=== PATIENT | female | born 1965 ===

== ENCOUNTER 2021-03-27 14:29 | Inpatient (IN) ==
[2021-03-27] MEDS ORDERED: ACETAMINOPHEN 325 MG TABLET PO PRN (17:57)
[2021-03-27] MEDS ORDERED: GLUCAGON 1 MG VIAL IM PRN (17:57)
[2021-03-27] MEDS ORDERED: hydrALAZINE 20 MG/1 ML VIAL IV PRN (17:57)
[2021-03-27] MEDS ORDERED: ONDANSETRON 4 MG/2 ML VIAL IV PRN (17:57)
[2021-03-27] MEDS ORDERED: DEXTROSE 50% 25 GM/50 ML SYRINGE IV PRN (18:05)
[2021-03-27] MEDS: HEPARIN 5,000 UNIT/1 ML VIAL SUBCUT SCH (18:47)
[2021-03-27] MEDS: FUROSEMIDE 40 MG/4 ML VIAL IV SCH (18:47)
[2021-03-27 18:50] LABS: Risk Ratio 2.3; Thyroid Stimulating Hormone 1.63 uIU/ml (0.358-3.74); VLDL Cholesterol 12.8 MG/DL
[2021-03-27] MEDS: AZITHROMYCIN INJ 500 MG in SODIUM CHLORIDE 0.9% 250 ML IV SCH (18:50)
[2021-03-27] MEDS ORDERED: MAGNESIUM SULF RIDER 4 GM/100 ML PREMIX IV PRN (19:18)
[2021-03-27] MEDS ORDERED: MAGNESIUM SULF RIDER 2 GM/50 ML PREMIX IV PRN (19:18)
[2021-03-27] MEDS: INSULIN LISPRO 100 UNIT/ML SUBCUT SCH (20:58)
[2021-03-27] MEDS: carvediloL 6.25 MG TABLET PO SCH (20:59)
[2021-03-27] MEDS ORDERED: ENOXAPARIN 80 MG/0.8 ML SYRINGE SUBCUT ONE (22:00)
[2021-03-28 05:31] LABS: Basophils % 0.2 % (0.0-0.8); Eosinophils % 0.1 % (0.00-10.9); Hematocrit 31.5 VOL% (35.7-47.0); Hemoglobin 10.3 GM/DL (12.0-16.0); Immature Granulocytes % 0.4 %; Immature Granulocytes Absolute 0.07 #; Lymphocytes # 0.4 10*3/uL (1.4-4.0); Lymphocytes % 2.5 % (21.3-54.2); Mean Corpuscular HGB Conc 32.7 GM/DL (32-36); Mean Corpuscular Volume 91.8 FL (87-102); Mean Platelet Volume 11.1 FL (9.6-12.0); Monocytes % 2.9 % (1.7-12.7); Neutrophils % 93.9 % (38.7-73.9); Platelet Count 159 T/CUMM (130-400); Red Blood Count 3.43 MC/CUMM (3.8-5.5); Red Cell Distribution Width 14.9 % (9.3-17.3); White Blood Count 17.8 T/CUMM (4-12)
[2021-03-28 05:47] LABS: Albumin 1.9 G/DL (3.4-5.0); Bilirubin,Total 0.8 MG/DL (0.20-1.00); Calcium 7.2 MG/DL (8.5-10.1); Osmolality,Calculated 298.8 MOS/KG (273-304); Potassium 4.5 MMOL/L (3.5-5.1); Total Protein 5.6 G/DL (6.4-8.2)
[2021-03-28 05:59] LABS: Acanthocytes Few; Band Neutrophils 3 % (0-10); Lymphocytes 1 % (20-55); Segmented Neutrophils 95 % (50-85); Total Cells Counted 100
[2021-03-28 06:00] LABS: Burr Cells Few; Elliptocytes Few; Platelet Estimate Adequate
[2021-03-28] MEDS: PANTOPRAZOLE 40 MG TABLET PO SCH (08:44)
[2021-03-28] MEDS: carvediloL 6.25 MG TABLET PO SCH ×2 (08:44→21:09)
[2021-03-28] MEDS: ISOSORBIDE MONONITRATE 30 MG TABLET PO SCH (08:44)
[2021-03-28] MEDS: cefTRIAXone 2,000 MG in SODIUM CHLORIDE 0.9% 100 ML IV SCH (08:44)
[2021-03-28] MEDS: FUROSEMIDE 40 MG/4 ML VIAL IV SCH (08:44)
[2021-03-28] MEDS: INSULIN LISPRO 100 UNIT/ML SUBCUT SCH ×4 (09:42→21:28)
[2021-03-28] MEDS: metOLazone 5 MG TABLET PO SCH (12:06)
[2021-03-28] MEDS: FUROSEMIDE 100 MG/10 ML VIAL IV SCH (15:28)
[2021-03-28] MEDS: AZITHROMYCIN INJ 500 MG in SODIUM CHLORIDE 0.9% 250 ML IV SCH (17:31)
[2021-03-29 05:30] LABS: Basophils % 0.2 % (0.0-0.8); Eosinophils % 0.1 % (0.00-10.9); Hematocrit 29.7 VOL% (35.7-47.0); Hemoglobin 9.3 GM/DL (12.0-16.0); Immature Granulocytes % 0.5 %; Immature Granulocytes Absolute 0.07 #; Lymphocytes # 0.5 10*3/uL (1.4-4.0); Lymphocytes % 3.9 % (21.3-54.2); Mean Corpuscular HGB Conc 31.3 GM/DL (32-36); Mean Corpuscular Volume 92.2 FL (87-102); Mean Platelet Volume 11.3 FL (9.6-12.0); Monocytes % 3.6 % (1.7-12.7); Neutrophils % 91.7 % (38.7-73.9); Platelet Count 161 T/CUMM (130-400); Red Blood Count 3.22 MC/CUMM (3.8-5.5); Red Cell Distribution Width 15.1 % (9.3-17.3)
[2021-03-29 06:04] LABS: Anisocytosis 2+; Band Neutrophils 15 % (0-10); Lymphocytes 3 % (20-55); Platelet Estimate Normal; Segmented Neutrophils 81 % (50-85); Total Cells Counted 100
[2021-03-29 06:05] LABS: Burr Cells 1+; Macrocytosis 1+; Ovalocytes 1+; Poikilocytosis 1+
[2021-03-29] MEDS: HEPARIN 5,000 UNIT/1 ML VIAL SUBCUT SCH ×2 (06:05→17:58)
[2021-03-29 08:37] LABS: Calcium 7.4 MG/DL (8.5-10.1); Osmolality,Calculated 302.5 MOS/KG (273-304); Potassium 4.5 MMOL/L (3.5-5.1)
[2021-03-29] MEDS: INSULIN LISPRO 100 UNIT/ML SUBCUT SCH ×4 (09:13→21:07)
[2021-03-29] MEDS: cefTRIAXone 2,000 MG in SODIUM CHLORIDE 0.9% 100 ML IV SCH (10:30)
[2021-03-29] MEDS: carvediloL 6.25 MG TABLET PO SCH ×2 (10:30→21:07)
[2021-03-29] MEDS: PANTOPRAZOLE 40 MG TABLET PO SCH (10:30)
[2021-03-29] MEDS: ISOSORBIDE MONONITRATE 30 MG TABLET PO SCH (10:31)
[2021-03-29] MEDS: metOLazone 5 MG TABLET PO SCH (10:31)
[2021-03-29] MEDS: FUROSEMIDE 100 MG/10 ML VIAL IV SCH ×2 (13:52→17:57)
[2021-03-29] MEDS: AZITHROMYCIN INJ 500 MG in SODIUM CHLORIDE 0.9% 250 ML IV SCH (17:52)
[2021-03-30 04:50] LABS: Eosinophils % 0.1 % (0.00-10.9); Hematocrit 29.5 VOL% (35.7-47.0); Hemoglobin 9.3 GM/DL (12.0-16.0); Immature Granulocytes % 0.4 %; Immature Granulocytes Absolute 0.05 #; Lymphocytes # 0.4 10*3/uL (1.4-4.0); Lymphocytes % 3.1 % (21.3-54.2); Mean Corpuscular HGB Conc 31.5 GM/DL (32-36); Mean Corpuscular Volume 93.1 FL (87-102); Mean Platelet Volume 11.4 FL (9.6-12.0); Monocytes % 3.4 % (1.7-12.7); Platelet Count 157 T/CUMM (130-400); Red Blood Count 3.17 MC/CUMM (3.8-5.5); White Blood Count 11.2 T/CUMM (4-12)
[2021-03-30 04:58] LABS: Calcium 6.8 MG/DL (8.5-10.1); Osmolality,Calculated 301.1 MOS/KG (273-304); Potassium 4.6 MMOL/L (3.5-5.1)
[2021-03-30 05:16] LABS: Acanthocytes Few; Burr Cells Slight; Hypochromasia 1+; Lymphocytes 7 % (20-55); Microcytosis 1+; Ovalocytes Few; Segmented Neutrophils 89 % (50-85); Total Cells Counted 100
[2021-03-30 05:17] LABS: Platelet Estimate Adequate
[2021-03-30] MEDS: HEPARIN 5,000 UNIT/1 ML VIAL SUBCUT SCH ×2 (06:14→17:09)
[2021-03-30] MEDS: ISOSORBIDE MONONITRATE 30 MG TABLET PO SCH (08:36)
[2021-03-30] MEDS: metOLazone 5 MG TABLET PO SCH (08:36)
[2021-03-30] MEDS: carvediloL 6.25 MG TABLET PO SCH ×2 (08:36→20:39)
[2021-03-30] MEDS: PANTOPRAZOLE 40 MG TABLET PO SCH (08:36)
[2021-03-30] MEDS: FUROSEMIDE 100 MG/10 ML VIAL IV SCH ×2 (08:51→16:22)
[2021-03-30] MEDS: cefTRIAXone 2,000 MG in SODIUM CHLORIDE 0.9% 100 ML IV SCH (08:51)
[2021-03-30] MEDS: INSULIN LISPRO 100 UNIT/ML SUBCUT SCH ×4 (08:55→20:39)
[2021-03-30] MEDS: AZITHROMYCIN INJ 500 MG in SODIUM CHLORIDE 0.9% 250 ML IV SCH (17:30)
[2021-03-30] MEDS ORDERED: metOLazone 5 MG TABLET PO ONE (21:07)
[2021-03-31] MEDS: HEPARIN 5,000 UNIT/1 ML VIAL SUBCUT SCH (05:50)
[2021-03-31 06:14] LABS: Osmolality,Calculated 296.4 MOS/KG (273-304); Potassium 4.6 MMOL/L (3.5-5.1)
[2021-03-31] MEDS: INSULIN LISPRO 100 UNIT/ML SUBCUT SCH ×2 (07:44→12:49)
[2021-03-31] MEDS: PANTOPRAZOLE 40 MG TABLET PO SCH (08:42)
[2021-03-31] MEDS: FUROSEMIDE 100 MG/10 ML VIAL IV SCH (08:42)
[2021-03-31] MEDS: ISOSORBIDE MONONITRATE 30 MG TABLET PO SCH (08:42)
[2021-03-31] MEDS: carvediloL 6.25 MG TABLET PO SCH (08:42)
[2021-03-31] MEDS: SODIUM BICARBONATE 650 MG TABLET PO SCH ×2 (08:48→14:35)
[2021-03-31] MEDS ORDERED: metOLazone 5 MG TABLET PO SCH (09:00)
[2021-03-31 11:56] LABS: M. Tuberculosis PCR Result Negative (Negative); M. Tuberculosis PCR Source SPUTUM
[2021-03-31 12:36] VITALS: BP 148/79
== END 2021-03-31 17:32 | disposition home or self-care (01) | DRG 698 ==
LOC: N.TELEN → SUATTDRO 16:48
PROVIDERS: ADMIT Internal Medicine; ATTEND Emergency Medicine

== ENCOUNTER 2021-04-02 18:44 | Inpatient (IN) ==
[2021-04-02 22:29] LABS: Basophils % 0.2 % (0.0-0.8); Eosinophils % 0.5 % (0.00-10.9); Hemoglobin 10.7 GM/DL (12.0-16.0); Immature Granulocytes Absolute 0.06 #; Lymphocytes # 0.4 10*3/uL (1.4-4.0); Lymphocytes % 6.4 % (21.3-54.2); Mean Corpuscular HGB Conc 31.5 GM/DL (32-36); Mean Corpuscular Volume 90.2 FL (87-102); Mean Platelet Volume 10.9 FL (9.6-12.0); Monocytes % 4.2 % (1.7-12.7); Neutrophils % 87.7 % (38.7-73.9); Platelet Count 178 T/CUMM (130-400); Red Blood Count 3.77 MC/CUMM (3.8-5.5); Red Cell Distribution Width 14.7 % (9.3-17.3); White Blood Count 6.1 T/CUMM (4-12)
[2021-04-02] MEDS ORDERED: DEXTROSE 50% 25 GM/50 ML SYRINGE IV PRN (22:38)
[2021-04-02] MEDS ORDERED: ACETAMINOPHEN 325 MG TABLET PO PRN (22:38)
[2021-04-02] MEDS ORDERED: hydrALAZINE 20 MG/1 ML VIAL IV PRN (22:38)
[2021-04-02] MEDS ORDERED: GLUCAGON 1 MG VIAL IM PRN (22:38)
[2021-04-02] MEDS ORDERED: ONDANSETRON 4 MG/2 ML VIAL IV PRN (22:38)
[2021-04-02 22:42] LABS: PT Patient Result 11.3 SECS (10.5-12.0)
[2021-04-02 22:46] LABS: Alanine Aminotransferase 18 U/L (13-56); Albumin 2.2 G/DL (3.4-5.0); Alkaline Phosphatase 91 U/L (45-117); Aspartate Amino Transferase 12 U/L (0-37); Bilirubin,Total < 0.39 MG/DL (0.20-1.00); Blood Urea Nitrogen 104 MG/DL (7-18); Calcium 7.3 MG/DL (8.5-10.1); Carbon Dioxide 15 MMOL/L (21-32); Glucose 99 MG/DL (74-106); Potassium 4.4 MMOL/L (3.5-5.1); Sodium 136 MMOL/L (136-145); Total Protein 6.5 G/DL (6.4-8.2)
[2021-04-02 22:48] LABS: Estimated Glom Filtration Rate 0 ML/MIN
[2021-04-03] MEDS: ALBUTEROL/IPRATROPIUM 3 ML NEB RESP TX SCH ×4 (00:06→21:57)
[2021-04-03 05:48] LABS: Basophils % 0.2 % (0.0-0.8); Eosinophils % 0.8 % (0.00-10.9); Hematocrit 30.9 VOL% (35.7-47.0); Hemoglobin 9.8 GM/DL (12.0-16.0); Immature Granulocytes % 0.8 %; Immature Granulocytes Absolute 0.04 #; Lymphocytes # 0.4 10*3/uL (1.4-4.0); Lymphocytes % 8.2 % (21.3-54.2); Mean Corpuscular HGB Conc 31.7 GM/DL (32-36); Mean Corpuscular Volume 90.9 FL (87-102); Mean Platelet Volume 10.9 FL (9.6-12.0); Monocytes % 6.2 % (1.7-12.7); Neutrophils % 83.8 % (38.7-73.9); Platelet Count 170 T/CUMM (130-400); Red Cell Distribution Width 14.8 % (9.3-17.3)
[2021-04-03 06:07] LABS: Bilirubin,Total 0.4 MG/DL (0.20-1.00); Calcium 7.4 MG/DL (8.5-10.1); Osmolality,Calculated 302.1 MOS/KG (273-304); Potassium 4.1 MMOL/L (3.5-5.1); Total Protein 5.8 G/DL (6.4-8.2)
[2021-04-03] MEDS ORDERED: FUROSEMIDE INJ 160 MG in SODIUM CHLORIDE 0.9% 50 ML IV SCH (09:00)
[2021-04-03] MEDS: SODIUM BICARBONATE 650 MG TABLET PO SCH ×3 (09:11→21:23)
[2021-04-03] MEDS: ISOSORBIDE MONONITRATE 30 MG TABLET PO SCH (09:11)
[2021-04-03] MEDS: carvediloL 6.25 MG TABLET PO SCH ×2 (09:11→21:22)
[2021-04-03] MEDS: metOLazone 5 MG TABLET PO SCH (09:11)
[2021-04-03] MEDS: PANTOPRAZOLE 40 MG TABLET PO SCH (09:11)
[2021-04-03] MEDS: FUROSEMIDE 100 MG/10 ML VIAL IV SCH ×2 (09:12→21:23)
[2021-04-03] MEDS: INSULIN LISPRO 100 UNIT/ML SUBCUT SCH ×4 (09:12→21:23)
[2021-04-03] MEDS: HEPARIN 5,000 UNIT/1 ML VIAL SUBCUT SCH ×2 (09:13→21:22)
[2021-04-04] MEDS: ALBUTEROL/IPRATROPIUM 3 ML NEB RESP TX SCH ×3 (01:15→13:34)
[2021-04-04 05:45] LABS: Basophils % 0.2 % (0.0-0.8); Eosinophils # 0.1 10*3/uL (0.0-0.87); Eosinophils % 1.5 % (0.00-10.9); Hematocrit 30.1 VOL% (35.7-47.0); Hemoglobin 9.6 GM/DL (12.0-16.0); Immature Granulocytes % 0.5 %; Immature Granulocytes Absolute 0.03 #; Lymphocytes # 0.4 10*3/uL (1.4-4.0); Lymphocytes % 7.6 % (21.3-54.2); Mean Corpuscular HGB Conc 31.9 GM/DL (32-36); Mean Corpuscular Volume 89.6 FL (87-102); Mean Platelet Volume 10.7 FL (9.6-12.0); Monocytes % 7.3 % (1.7-12.7); Neutrophils % 82.9 % (38.7-73.9); Platelet Count 176 T/CUMM (130-400); Red Blood Count 3.36 MC/CUMM (3.8-5.5); Red Cell Distribution Width 14.6 % (9.3-17.3); White Blood Count 5.5 T/CUMM (4-12)
[2021-04-04 06:04] LABS: Calcium 7.3 MG/DL (8.5-10.1); Osmolality,Calculated 293.5 MOS/KG (273-304); Potassium 4.3 MMOL/L (3.5-5.1)
[2021-04-04] MEDS: INSULIN LISPRO 100 UNIT/ML SUBCUT SCH ×3 (09:39→16:41)
[2021-04-04] MEDS: metOLazone 5 MG TABLET PO SCH (09:52)
[2021-04-04] MEDS: FUROSEMIDE 100 MG/10 ML VIAL IV SCH (09:52)
[2021-04-04] MEDS: SODIUM BICARBONATE 650 MG TABLET PO SCH ×2 (09:52→14:10)
[2021-04-04] MEDS: HEPARIN 5,000 UNIT/1 ML VIAL SUBCUT SCH (09:52)
[2021-04-04] MEDS: carvediloL 6.25 MG TABLET PO SCH (09:53)
[2021-04-04] MEDS: ISOSORBIDE MONONITRATE 30 MG TABLET PO SCH (09:53)
[2021-04-04] MEDS: PANTOPRAZOLE 40 MG TABLET PO SCH (09:53)
[2021-04-04 20:23] VITALS: BP 149/73
== END 2021-04-04 16:31 | disposition home or self-care (01) | DRG 304 ==
LOC: N.3E → OBSVTOIN 21:04 → SUATTDRO 21:04
PROVIDERS: ADMIT Internal Medicine; ATTEND Internal Medicine

== ENCOUNTER 2021-07-02 08:40 | Inpatient (IN) ==
[2021-07-02 09:24] LABS: Basophils % 0.2 % (0.0-0.8); Eosinophils # 0.1 10*3/uL (0.0-0.87); Eosinophils % 0.9 % (0.00-10.9); Hematocrit 40.9 VOL% (35.7-47.0); Hemoglobin 12.3 GM/DL (12.0-16.0); Immature Granulocytes % 0.9 %; Immature Granulocytes Absolute 0.09 #; Lymphocytes # 0.8 10*3/uL (1.4-4.0); Lymphocytes % 8.2 % (21.3-54.2); Mean Corpuscular HGB Conc 30.1 GM/DL (32-36); Mean Corpuscular Volume 97.1 FL (87-102); Mean Platelet Volume 10.3 FL (9.6-12.0); Monocytes % 4.9 % (1.7-12.7); Neutrophils % 84.9 % (38.7-73.9); Red Blood Count 4.21 MC/CUMM (3.8-5.5); Red Cell Distribution Width 17.4 % (9.3-17.3); White Blood Count 9.6 T/CUMM (4-12)
[2021-07-02 09:27] LABS: Platelet Count 98 T/CUMM (130-400)
[2021-07-02 09:41] LABS: Calcium 8.6 MG/DL (8.5-10.1); Osmolality,Calculated 282.2 MOS/KG (273-304); Potassium 4.3 MMOL/L (3.5-5.1)
[2021-07-02] MEDS ORDERED: KETOROLAC 30 MG/1 ML VIAL IV PRN (12:27)
[2021-07-02] MEDS ORDERED: ONDANSETRON 4 MG/2 ML VIAL IV PRN (12:27)
[2021-07-02] MEDS ORDERED: hydrALAZINE 20 MG/1 ML VIAL IV PRN (12:27)
[2021-07-02] MEDS ORDERED: GLUCAGON 1 MG VIAL IM PRN (12:27)
[2021-07-02] MEDS ORDERED: DEXTROSE 10% 25 GM/250 ML BAG IV PRN (12:27)
[2021-07-02 13:10] LABS: Thyroid Stimulating Hormone 3.89 uIU/ml (0.358-3.74)
[2021-07-02] MEDS: HEPARIN DRIP 25,000 UNITS/500 ML PREMIX IV SCH (13:56)
[2021-07-02] MEDS ORDERED: HEPARIN 10,000 UNIT/10 ML VIAL IV SCH (17:30)
[2021-07-02] MEDS: INSULIN LISPRO 100 UNIT/ML SUBCUT SCH ×2 (18:25→21:22)
[2021-07-03 03:16] LABS: Basophils % 0.4 % (0.0-0.8); Eosinophils # 0.1 10*3/uL (0.0-0.87); Eosinophils % 0.7 % (0.00-10.9); Hematocrit 38.4 VOL% (35.7-47.0); Hemoglobin 11.7 GM/DL (12.0-16.0); Immature Granulocytes % 0.6 %; Immature Granulocytes Absolute 0.05 #; Lymphocytes # 1.4 10*3/uL (1.4-4.0); Lymphocytes % 17.1 % (21.3-54.2); Mean Corpuscular HGB Conc 30.5 GM/DL (32-36); Mean Corpuscular Volume 96.7 FL (87-102); Mean Platelet Volume 10.2 FL (9.6-12.0); Monocytes % 6.4 % (1.7-12.7); Neutrophils % 74.8 % (38.7-73.9); Red Blood Count 3.97 MC/CUMM (3.8-5.5); Red Cell Distribution Width 17.1 % (9.3-17.3); White Blood Count 8.3 T/CUMM (4-12)
[2021-07-03 03:22] LABS: Platelet Count 40 T/CUMM (130-400)
[2021-07-03 03:29] LABS: Calcium 8.3 MG/DL (8.5-10.1); Osmolality,Calculated 275.2 MOS/KG (273-304); Potassium 4.5 MMOL/L (3.5-5.1)
[2021-07-03 03:32] LABS: Risk Ratio 2.58; VLDL Cholesterol 15.2 MG/DL
[2021-07-03] MEDS: INSULIN LISPRO 100 UNIT/ML SUBCUT SCH ×4 (09:00→20:41)
[2021-07-03] MEDS: HEPARIN DRIP 25,000 UNITS/500 ML PREMIX IV SCH (13:00)
[2021-07-03] MEDS ORDERED: VANCOMYCIN INJ 500 MG in SODIUM CHLORIDE 0.9% 100 ML IV PRN (15:05)
[2021-07-03] MEDS ORDERED: VANCOMYCIN INJ 1,500 MG in SODIUM CHLORIDE 0.9% 500 ML IV ONE (17:00)
[2021-07-03] MEDS: ACETAMINOPHEN 325 MG TABLET PO PRN (20:47)
[2021-07-04] MEDS: INSULIN LISPRO 100 UNIT/ML SUBCUT SCH ×4 (09:21→21:43)
[2021-07-04] MEDS: HEPARIN DRIP 25,000 UNITS/500 ML PREMIX IV SCH (13:30)
[2021-07-04 15:47] LABS: INR 0.9; PT Patient Result 10.5 SECS (10.5-12.0)
[2021-07-05] MEDS: HEPARIN DRIP 25,000 UNITS/500 ML PREMIX IV SCH (06:14)
[2021-07-05] MEDS: ACETAMINOPHEN 325 MG TABLET PO PRN (06:17)
[2021-07-05] MEDS: INSULIN LISPRO 100 UNIT/ML SUBCUT SCH ×2 (08:36→13:32)
[2021-07-05] MEDS ORDERED: WARFARIN 5 MG TABLET PO SCH (15:00)
[2021-07-05] MEDS ORDERED: VANCOMYCIN INJ 500 MG in SODIUM CHLORIDE 0.9% 100 ML IV ONE (17:00)
[2021-07-05 17:23] VITALS: BP 152/87
== END 2021-07-05 17:48 | disposition home or self-care (01) | DRG 314 ==
LOC: N.ED 08:40 → N.5E 13:30 → SUATTDRO 13:30 → N.5E 14:13
PROVIDERS: ADMIT Emergency Medicine; ATTEND Internal Medicine Geriatric Medicine

== ENCOUNTER 2021-07-20 07:45 | Inpatient (IN) ==
[2021-07-25] MEDS ORDERED: DEXTROSE 10% 250 ML BAG IV PRN (11:10)
[2021-07-25] MEDS ORDERED: GLUCAGON 1 MG VIAL IM PRN (11:10)
[2021-07-25 11:32] LABS: Basophils # 0.1 10*3/uL (0.0-0.2); Basophils % 0.7 % (0.0-0.8); Eosinophils # 0.1 10*3/uL (0.0-0.87); Eosinophils % 1.4 % (0.00-10.9); Hematocrit 34.2 VOL% (35.7-47.0); Hemoglobin 10.3 GM/DL (12.0-16.0); Immature Granulocytes % 0.7 %; Immature Granulocytes Absolute 0.07 #; Lymphocytes # 0.9 10*3/uL (1.4-4.0); Lymphocytes % 8.9 % (21.3-54.2); Mean Corpuscular HGB Conc 30.1 GM/DL (32-36); Mean Corpuscular Volume 90.2 FL (87-102); Mean Platelet Volume 9.8 FL (9.6-12.0); Monocytes % 8.9 % (1.7-12.7); Neutrophils % 79.4 % (38.7-73.9); Platelet Count 218 T/CUMM (130-400); Red Blood Count 3.79 MC/CUMM (3.8-5.5); Red Cell Distribution Width 16.2 % (9.3-17.3); White Blood Count 10.1 T/CUMM (4-12)
[2021-07-25 11:52] LABS: Alanine Aminotransferase < 9 U/L (13-56); Albumin 2.3 G/DL (3.4-5.0); Alkaline Phosphatase 136 U/L (45-117); Aspartate Amino Transferase 12 U/L (0-37); Blood Urea Nitrogen 30 MG/DL (7-18); Calcium 8.4 MG/DL (8.5-10.1); Carbon Dioxide 26 MMOL/L (21-32); Estimated Glom Filtration Rate 11 ML/MIN; Glucose 127 MG/DL (74-106); Osmolality,Calculated 267.8 MOS/KG (273-304); Potassium 4.4 MMOL/L (3.5-5.1); Sodium 130 MMOL/L (136-145); Total Protein 7.6 G/DL (6.4-8.2)
[2021-07-25 12:05] LABS: Arterial Base Excess iSTAT -1 MMOL/L (-2.5-2.5); Arterial Bicarbonate iSTAT 23.2 MMOL/L (20-26); Arterial O2 Saturation iSTAT 94 % (95-100); Arterial PCO2 iSTAT 38 MM HG (35-48); Arterial PO2 iSTAT 73 MM HG (80-95); Arterial Total CO2 iSTAT 24 MMO/L (23-27); Arterial pH iSTAT 7.395 (7.35-7.45)
[2021-07-25] MEDS ORDERED: ONDANSETRON 4 MG/2 ML VIAL IV PRN (12:14)
[2021-07-25] MEDS: INSULIN REGULAR 100 UNIT/ML SUBCUT SCH ×4 (12:18→22:19)
[2021-07-25] MEDS: SEVELAMER CARBONATE 800 MG TABLET PO SCH ×2 (15:23→17:33)
[2021-07-25] MEDS: carvediloL 6.25 MG TABLET PO SCH (17:33)
[2021-07-25] MEDS: ACETAMINOPHEN 325 MG TABLET PO PRN (20:23)
[2021-07-25] MEDS: CHLORHEXIDINE 0.12% ORAL RINSE 60 ML BOTTLE SWISH/SPIT SCH (20:25)
[2021-07-25] MEDS ORDERED: carvediloL 6.25 MG TABLET PO SCH (21:00)
[2021-07-26 03:23] LABS: Basophils % 0.5 % (0.0-0.8); Eosinophils # 0.2 10*3/uL (0.0-0.87); Eosinophils % 2.2 % (0.00-10.9); Hematocrit 32.6 VOL% (35.7-47.0); Immature Granulocytes % 0.7 %; Immature Granulocytes Absolute 0.06 #; Lymphocytes # 1.2 10*3/uL (1.4-4.0); Lymphocytes % 13.7 % (21.3-54.2); Mean Corpuscular HGB Conc 30.7 GM/DL (32-36); Mean Corpuscular Volume 89.1 FL (87-102); Monocytes % 10.3 % (1.7-12.7); Neutrophils % 72.6 % (38.7-73.9); Platelet Count 262 T/CUMM (130-400); Red Blood Count 3.66 MC/CUMM (3.8-5.5); Red Cell Distribution Width 16.5 % (9.3-17.3); White Blood Count 8.6 T/CUMM (4-12)
[2021-07-26 03:42] LABS: Alanine Aminotransferase 13 U/L (13-56); Albumin 2.1 G/DL (3.4-5.0); Alkaline Phosphatase 144 U/L (45-117); Aspartate Amino Transferase 14 U/L (0-37); Blood Urea Nitrogen 37 MG/DL (7-18); Calcium 7.8 MG/DL (8.5-10.1); Carbon Dioxide 22 MMOL/L (21-32); Estimated Glom Filtration Rate 8 ML/MIN; Glucose 116 MG/DL (74-106); Osmolality,Calculated 271.7 MOS/KG (273-304); Potassium 4.4 MMOL/L (3.5-5.1); Sodium 131 MMOL/L (136-145); Total Protein 7.4 G/DL (6.4-8.2)
[2021-07-26] MEDS: INSULIN REGULAR 100 UNIT/ML SUBCUT SCH ×4 (07:50→20:10)
[2021-07-26] MEDS: CHLORHEXIDINE 0.12% ORAL RINSE 60 ML BOTTLE SWISH/SPIT SCH ×2 (08:27→20:57)
[2021-07-26] MEDS: SEVELAMER CARBONATE 800 MG TABLET PO SCH ×3 (08:27→17:52)
[2021-07-26] MEDS: ASPIRIN CHEW 81 MG TABLET PO SCH (08:27)
[2021-07-26] MEDS: carvediloL 6.25 MG TABLET PO SCH ×2 (08:27→17:53)
[2021-07-26] MEDS: ACETAMINOPHEN 325 MG TABLET PO PRN ×2 (11:24→20:57)
[2021-07-26] MEDS: CHLORHEXIDINE 4% SOLN 118 ML BOTTLE TOP SCH ×2 (20:09→20:57)
[2021-07-27] MEDS ORDERED: SODIUM CHLORIDE 0.9% 1,000 ML IV SCH (04:00)
[2021-07-27] MEDS ORDERED: PAPAVERINE 60 MG/2 ML VIAL ONE (04:16)
[2021-07-27] MEDS ORDERED: VANCOMYCIN 500 MG VIAL ONE (04:17)
[2021-07-27] MEDS ORDERED: VANCOMYCIN 1,000 MG VIAL ONE ×2 (04:17→10:28)
[2021-07-27] MEDS: CHLORHEXIDINE 4% SOLN 118 ML BOTTLE TOP SCH (04:56)
[2021-07-27] MEDS ORDERED: CEFUROXIME INJ 1,500 MG in SODIUM CHLORIDE 0.9% 100 ML IV ONE (05:00)
[2021-07-27] MEDS ORDERED: FAMOTIDINE 20 MG TABLET PO ONE (05:30)
[2021-07-27] MEDS ORDERED: DIAZEPAM 5 MG TABLET PO ONE (05:30)
[2021-07-27] MEDS ORDERED: PHENYLEPHRINE 1 MG/10 ML SYRINGE IV ONE ×2 (05:40)
[2021-07-27] MEDS ORDERED: VECURONIUM 10 MG VIAL IV ONE ×5 (05:40→10:40)
[2021-07-27] MEDS ORDERED: AMINOCAPROIC ACID 5,000 MG/20 ML VIAL ONE (05:40)
[2021-07-27] MEDS ORDERED: PHENYLEPHRINE 10 MG/1 ML VIAL IV ONE (05:41)
[2021-07-27] MEDS ORDERED: LIDOCAINE 2% 5 ML VIAL ONE ×3 (05:51→10:40)
[2021-07-27] MEDS ORDERED: MIDAZOLAM 10 MG/2 ML VIAL ONE ×4 (05:55→09:16)
[2021-07-27] MEDS ORDERED: SUCCINYLCHOLINE 200 MG/10 ML VIAL ONE (05:57)
[2021-07-27] MEDS ORDERED: SUFentanil 250 MCG/5 ML AMP ONE (06:15)
[2021-07-27] MEDS ORDERED: ePHEDrine 50 MG/ML VIAL ONE (07:17)
[2021-07-27] MEDS ORDERED: NITROPRUSSIDE 50 MG/2 ML VIAL ONE (07:20)
[2021-07-27] MEDS ORDERED: SODIUM BICARBONATE 50 MEQ/50 ML VIAL IV ONE ×4 (07:20→14:42)
[2021-07-27] MEDS ORDERED: PHENYLEPHRINE DRIP 40 MG/250 ML PREMIX IV ONE (07:21)
[2021-07-27] MEDS ORDERED: CALCIUM CHLORIDE 1,000 MG/10 ML SYRINGE IV ONE (07:21)
[2021-07-27] MEDS ORDERED: SUFentanil 50 MCG/ML AMP ONE (07:44)
[2021-07-27 07:51] LABS: ABG Base Excess -0.2 MMOL/L (-2.5-2.5); ABG HCO3 24.3 MMOL/L (20-26); ABG PCO2 36.4 MM HG (35-48); ABG PH 7.425 (7.35-7.45); Glucose Heart Surgery 105 MG/DL (74-106); Ionized Calcium Arterial 1.08 MMOL/L (1.21-1.46); PCO2 Patient Temp Arterial 36.4 MMHG; PH Patient Temp Arterial 7.425; Patient Temperature 37 CELCIUS; Potassium Heart/CVR 4.2 MMOL/L (3.5-5.1); Sodium Heart/CVR 134 MMOL/L (135-145)
[2021-07-27 08:12] LABS: Mucus,Urine Occasional /LPF (Occasional); RBC,Urine 1 /HPF (0-4); Squamous Epithelial Cell,Urine Few /HPF (0-10)
[2021-07-27 08:14] LABS: Bilirubin,Urine Negative (Negative); Blood, Urine Negative (Negative); Glucose,Urine (UA) Negative (Negative); Ketones,Urine Negative (Negative); Nitrite,Urine Negative (Negative); Protein,Urine 3+ mg/dL (Negative); Urine Appearance Clear (Clear); Urine Color Yellow (Yellow); Urine Urobilinogen 0.2 eU/dL (<2.0)
[2021-07-27 09:01] LABS: Hematocrit Heart Surgery 18.5 PERCENT (37-47); PCO2 Patient Temp Venous 31.5 MM HG; PH Patient Temp Venous 7.482; Potassium Heart/CVR 4.9 MMOL/L (3.5-5.1); VBG Base Excess 0.4 MEQ/L (0-4); VBG HCO3 24.6 MEQ/L (24-28); VBG Oxygen Saturation 78.6 %; VBG PCO2 34.7 MMHG (41-51); VBG PH 7.452; VBG PO2 41.3 MMHG (17-40); VBG Total CO2 23.2 MMOL/L
[2021-07-27 09:02] LABS: Hemoglobin Heart Surgery 5.9 G/DL (12.0-16.0)
[2021-07-27] MEDS: INSULIN REGULAR 100 UNIT/ML SUBCUT SCH (09:20)
[2021-07-27] MEDS: carvediloL 6.25 MG TABLET PO SCH (09:20)
[2021-07-27] MEDS: SEVELAMER CARBONATE 800 MG TABLET PO SCH (09:20)
[2021-07-27] MEDS: CHLORHEXIDINE 0.12% ORAL RINSE 60 ML BOTTLE SWISH/SPIT SCH ×2 (09:21→20:04)
[2021-07-27] MEDS: ASPIRIN CHEW 81 MG TABLET PO SCH (09:21)
[2021-07-27] MEDS ORDERED: NITROGLYCERIN DRIP 50 MG/250 ML BOTTLE IV ONE ×2 (09:29→13:18)
[2021-07-27] MEDS ORDERED: FAMOTIDINE 20 MG/2 ML VIAL IV ONE (09:34)
[2021-07-27] MEDS ORDERED: diphenhydrAMINE 50 MG/1 ML VIAL ONE (09:36)
[2021-07-27 09:48] LABS: Hematocrit Heart Surgery 19.9 PERCENT (37-47); PCO2 Patient Temp Venous 32.8 MM HG; PH Patient Temp Venous 7.409; PO2 Patient Temp Venous 38.2 MM HG; Potassium Heart/CVR 4.4 MMOL/L (3.5-5.1); VBG Base Excess -3.4 MEQ/L (0-4); VBG HCO3 21.3 MEQ/L (24-28); VBG Oxygen Saturation 70.5 %; VBG PCO2 32.8 MMHG (41-51); VBG PH 7.409; VBG PO2 38.2 MMHG (17-40); VBG Total CO2 19.9 MMOL/L
[2021-07-27 09:49] LABS: Hemoglobin Heart Surgery 6.3 G/DL (12.0-16.0)
[2021-07-27 10:22] LABS: ABG Base Excess -6.4 MMOL/L (-2.5-2.5); ABG HCO3 17.7 MMOL/L (20-26); ABG Oxygen Saturation 99.1 % (95-100); ABG PH 7.389 (7.35-7.45); ABG PO2 351.3 MM HG (80-95); ABG TCO2 18.6 MMOL/L (23-27); Glucose Heart Surgery 183 MG/DL (74-106); Hemoglobin Heart Surgery 8.8 G/DL (12.0-16.0); Ionized Calcium Arterial 1.07 MMOL/L (1.21-1.46); PH Patient Temp Arterial 7.389; PO2 Patient Temp Arterial 351.3 MM HG; Patient Temperature 37 CELCIUS; Potassium Heart/CVR 4.4 MMOL/L (3.5-5.1); Sodium Heart/CVR 129 MMOL/L (135-145)
[2021-07-27] MEDS ORDERED: DEXTROSE 5% KCL 20 MEQ 20 MEQ/1,000 ML BAG IV ONE (10:30)
[2021-07-27] MEDS ORDERED: methylPREDNISolone SOD SUC 1,000 MG/8 ML VIAL ONE (10:30)
[2021-07-27] MEDS ORDERED: MAGNESIUM SULFATE 5 GM/10 ML VIAL IV ONE (10:30)
[2021-07-27] MEDS ORDERED: ALBUMIN 25% 25 GM/100 ML VIAL IV ONE (10:30)
[2021-07-27] MEDS ORDERED: FUROSEMIDE 20 MG/2 ML VIAL ONE (10:31)
[2021-07-27] MEDS ORDERED: HEPARIN 10,000 UNIT/10 ML VIAL ONE (10:31)
[2021-07-27] MEDS ORDERED: PROTAMINE SULFATE 250 MG/25 ML VIAL IV ONE (10:31)
[2021-07-27] MEDS ORDERED: MANNITOL 100 GM/500 ML BAG IV ONE (10:31)
[2021-07-27] MEDS ORDERED: SODIUM CHLORIDE 0.9% 250 ML IV ONE (10:39)
[2021-07-27] MEDS ORDERED: HEPARIN/NACL 0.9% 2 UNITS/ML 1,000 UNIT/500 ML BAG IV ONE (10:39)
[2021-07-27] MEDS ORDERED: SODIUM CHLORIDE 0.9% 2,000 ML IV ONE (10:39)
[2021-07-27] MEDS ORDERED: SODIUM CHLORIDE 0.9% 100 ML IV ONE (10:39)
[2021-07-27] MEDS ORDERED: CALCIUM CHLORIDE 1,000 MG/10 ML VIAL IV ONE (10:40)
[2021-07-27] MEDS ORDERED: MINERAL OIL/PETROLATUM OPH OINT 3.5 GM TUBE ONE (10:40)
[2021-07-27] MEDS ORDERED: SEVOFLURANE 1 UNIT/15 MINUTE INH ONE ×2 (10:41)
[2021-07-27] MEDS ORDERED: PROTAMINE SULFATE 50 MG/5 ML VIAL IV ONE ×2 (11:04→11:05)
[2021-07-27 11:32] LABS: ABG Base Excess -4.4 MMOL/L (-2.5-2.5); ABG HCO3 20.7 MMOL/L (20-26); ABG Oxygen Saturation 98.7 % (95-100); ABG PCO2 42.8 MM HG (35-48); ABG TCO2 20.1 MMOL/L (23-27); Glucose Heart Surgery 187 MG/DL (74-106); Hematocrit Heart Surgery 26.9 PERCENT (37-47); Hemoglobin Heart Surgery 8.7 G/DL (12.0-16.0); Potassium Heart/CVR 4.3 MMOL/L (3.5-5.1)
[2021-07-27] MEDS ORDERED: MAGNESIUM SULF RIDER 2 GM/50 ML PREMIX IV PRN (11:36)
[2021-07-27] MEDS ORDERED: MIDAZOLAM 10 MG/2 ML VIAL IV PRN (11:36)
[2021-07-27] MEDS ORDERED: INSULIN REGULAR 100 UNIT/ML IV PRN (11:36)
[2021-07-27] MEDS ORDERED: ACETAMINOPHEN 650 MG SUPP RECTAL PRN (11:36)
[2021-07-27] MEDS ORDERED: LACTATED RINGERS 250 ML IV PRN (11:36)
[2021-07-27] MEDS ORDERED: CALCIUM CHLORIDE 1,000 MG/10 ML SYRINGE IV PRN (11:36)
[2021-07-27] MEDS ORDERED: SODIUM CHLORIDE 0.45% 1,000 ML IV SCH ×2 (11:36)
[2021-07-27] MEDS ORDERED: VECURONIUM 10 MG VIAL IV PRN ×2 (11:36)
[2021-07-27] MEDS ORDERED: MAGNESIUM SULF RIDER 4 GM/100 ML PREMIX IV PRN (11:36)
[2021-07-27] MEDS ORDERED: POTASSIUM CHLORIDE RIDER 20 MEQ/100 ML PREMIX IV PRN (11:36)
[2021-07-27] MEDS ORDERED: PHENYLEPHRINE DRIP 40 MG/250 ML PREMIX IV PRN (11:36)
[2021-07-27] MEDS ORDERED: ONDANSETRON 4 MG/2 ML VIAL IV PRN (11:36)
[2021-07-27] MEDS ORDERED: NITROPRUSSIDE 100 MG in DEXTROSE 5% 250 ML IV PRN (11:36)
[2021-07-27] MEDS ORDERED: MIDAZOLAM 2 MG/2 ML VIAL IV PRN (11:36)
[2021-07-27] MEDS ORDERED: POTASSIUM CHLORIDE RIDER 10 MEQ/100 ML PREMIX IV PRN (11:36)
[2021-07-27] MEDS ORDERED: INSULIN REGULAR 100 UNIT/ML IV ONE (11:36)
[2021-07-27] MEDS ORDERED: DEXTROSE 10% 250 ML BAG IV PRN ×2 (11:48→11:49)
[2021-07-27 11:51] LABS: Basophils # 0.1 10*3/uL (0.0-0.2); Basophils % 0.5 % (0.0-0.8); Eosinophils # 0.1 10*3/uL (0.0-0.87); Eosinophils % 0.7 % (0.00-10.9); Hematocrit 28.5 VOL% (35.7-47.0); Hemoglobin 8.6 GM/DL (12.0-16.0); Immature Granulocytes % 1.3 %; Immature Granulocytes Absolute 0.14 #; Mean Corpuscular HGB Conc 30.2 GM/DL (32-36); Mean Corpuscular Volume 91.3 FL (87-102); Mean Platelet Volume 10.5 FL (9.6-12.0); Monocytes % 4.6 % (1.7-12.7); Neutrophils % 83.9 % (38.7-73.9); Red Blood Count 3.12 MC/CUMM (3.8-5.5); Red Cell Distribution Width 15.9 % (9.3-17.3); White Blood Count 10.8 T/CUMM (4-12)
[2021-07-27 11:52] LABS: Platelet Count 96 T/CUMM (130-400)
[2021-07-27 11:57] LABS: Albumin 1.9 G/DL (3.4-5.0); Bilirubin,Total 0.5 MG/DL (0.20-1.00); Calcium 7.1 MG/DL (8.5-10.1); Potassium 4.4 MMOL/L (3.5-5.1); Total Protein 5.5 G/DL (6.4-8.2)
[2021-07-27 12:09] LABS: INR 1.3; PT Patient Result 14.1 SECS (10.5-12.0); Partial Thromboplastin Time 34.6 SECS (23.8-32.1)
[2021-07-27 12:27] LABS: CKMB % 11.1 %
[2021-07-27 12:31] LABS: High Sensitive Troponin I* 2493.7 ng/L (0-54)
[2021-07-27] MEDS: ALBUMIN 5% 12.5 GM/250 ML VIAL IV PRN ×3 (12:55→21:24)
[2021-07-27] MEDS ORDERED: SODIUM CHLORIDE 0.9% 1,000 ML IV ONE (13:05)
[2021-07-27] MEDS ORDERED: NITROGLYCERIN DRIP 50 MG/250 ML BOTTLE IV PRN (13:18)
[2021-07-27 14:29] LABS: ABG Base Excess -5.5 MMOL/L (-2.5-2.5); ABG HCO3 19.8 MMOL/L (20-26); ABG Oxygen Saturation 98.4 % (95-100); ABG PCO2 47.5 MM HG (35-48); ABG PH 7.262 (7.35-7.45); ABG TCO2 20.2 MMOL/L (23-27); Glucose Heart Surgery 198 MG/DL (74-106); Hematocrit Heart Surgery 25.7 PERCENT (37-47); Hemoglobin Heart Surgery 8.3 G/DL (12.0-16.0); Potassium Heart/CVR 4.8 MMOL/L (3.5-5.1)
[2021-07-27] MEDS ORDERED: MIDAZOLAM 2 MG/2 ML VIAL IV ONE (15:07)
[2021-07-27 16:00] LABS: ABG Base Excess -3.5 MMOL/L (-2.5-2.5); ABG HCO3 21.5 MMOL/L (20-26); ABG Oxygen Saturation 97.9 % (95-100); ABG PCO2 36.3 MM HG (35-48); ABG PH 7.375 (7.35-7.45); ABG TCO2 19.7 MMOL/L (23-27); Glucose Heart Surgery 210 MG/DL (74-106); Hematocrit Heart Surgery 27.3 PERCENT (37-47); Hemoglobin Heart Surgery 8.8 G/DL (12.0-16.0); Potassium Heart/CVR 4.6 MMOL/L (3.5-5.1)
[2021-07-27] MEDS ORDERED: SODIUM CHLORIDE 0.9% 250 ML IV PRN (16:13)
[2021-07-27] MEDS: MORPHINE 10 MG/1 ML VIAL IV PRN (16:50)
[2021-07-27] MEDS: INSULIN REGULAR DRIP 100 ML IV SCH (17:19)
[2021-07-27 17:20] LABS: Hematocrit 26.8 VOL% (35.7-47.0); Hemoglobin 8.2 GM/DL (12.0-16.0)
[2021-07-27 18:34] LABS: ABG Base Excess -4.3 MMOL/L (-2.5-2.5); ABG HCO3 20.8 MMOL/L (20-26); ABG Oxygen Saturation 99.2 % (95-100); ABG PCO2 39.7 MM HG (35-48); ABG PH 7.334 (7.35-7.45); ABG TCO2 19.6 MMOL/L (23-27); Glucose Heart Surgery 206 MG/DL (74-106); Hematocrit Heart Surgery 27.5 PERCENT (37-47); Hemoglobin Heart Surgery 8.9 G/DL (12.0-16.0); Potassium Heart/CVR 4.6 MMOL/L (3.5-5.1)
[2021-07-27] MEDS: CEFUROXIME INJ 1,500 MG in SODIUM CHLORIDE 0.9% 100 ML IV SCH (20:04)
[2021-07-27 20:21] LABS: ABG Base Excess -4.7 MMOL/L (-2.5-2.5); ABG HCO3 20.6 MMOL/L (20-26); ABG Oxygen Saturation 99.2 % (95-100); ABG PH 7.327 (7.35-7.45); ABG TCO2 19.5 MMOL/L (23-27); Glucose Heart Surgery 163 MG/DL (74-106); Hematocrit Heart Surgery 27.6 PERCENT (37-47); Hemoglobin Heart Surgery 8.9 G/DL (12.0-16.0); Potassium Heart/CVR 4.6 MMOL/L (3.5-5.1)
[2021-07-27 20:47] LABS: CKMB % 10.3 %
[2021-07-27 20:50] LABS: High Sensitive Troponin I* 7417.4 ng/L (0-54)
[2021-07-28 00:04] LABS: ABG Base Excess -4.6 MMOL/L (-2.5-2.5); ABG HCO3 20.6 MMOL/L (20-26); ABG PCO2 38.5 MM HG (35-48); ABG TCO2 19.3 MMOL/L (23-27); Glucose Heart Surgery 120 MG/DL (74-106); Hematocrit Heart Surgery 26.6 PERCENT (37-47); Hemoglobin Heart Surgery 8.6 G/DL (12.0-16.0); Potassium Heart/CVR 4.5 MMOL/L (3.5-5.1)
[2021-07-28] MEDS: MORPHINE 10 MG/1 ML VIAL IV PRN ×3 (02:48→15:00)
[2021-07-28 03:58] LABS: ABG Base Excess -4.6 MMOL/L (-2.5-2.5); ABG HCO3 20.6 MMOL/L (20-26); ABG Oxygen Saturation 98.5 % (95-100); ABG PCO2 38.6 MM HG (35-48); ABG PH 7.339 (7.35-7.45); ABG TCO2 19.4 MMOL/L (23-27); Glucose Heart Surgery 111 MG/DL (74-106); Hematocrit Heart Surgery 25.5 PERCENT (37-47); Hemoglobin Heart Surgery 8.2 G/DL (12.0-16.0); Potassium Heart/CVR 4.6 MMOL/L (3.5-5.1)
[2021-07-28 04:05] LABS: Basophils % 0.3 % (0.0-0.8); Hematocrit 26.1 VOL% (35.7-47.0); Hemoglobin 8.2 GM/DL (12.0-16.0); Immature Granulocytes % 0.6 %; Immature Granulocytes Absolute 0.07 #; Lymphocytes # 0.5 10*3/uL (1.4-4.0); Lymphocytes % 4.3 % (21.3-54.2); Mean Corpuscular HGB Conc 31.4 GM/DL (32-36); Mean Corpuscular Volume 91.9 FL (87-102); Mean Platelet Volume 11.2 FL (9.6-12.0); Monocytes % 2.4 % (1.7-12.7); Neutrophils % 92.4 % (38.7-73.9); Platelet Count 102 T/CUMM (130-400); Red Blood Count 2.84 MC/CUMM (3.8-5.5); Red Cell Distribution Width 15.8 % (9.3-17.3); White Blood Count 12.7 T/CUMM (4-12)
[2021-07-28 04:22] LABS: Albumin 2.7 G/DL (3.4-5.0); Bilirubin,Direct 0.18 MG/DL (0.0-0.20); Bilirubin,Total 0.5 MG/DL (0.20-1.00); Calcium 7.9 MG/DL (8.5-10.1); Osmolality,Calculated 289.3 MOS/KG (273-304); Potassium 4.8 MMOL/L (3.5-5.1); Total Protein 5.6 G/DL (6.4-8.2)
[2021-07-28 04:23] LABS: CKMB % 12.9 %; High Sensitive Troponin I* 8816.8 ng/L (0-54)
[2021-07-28 04:32] LABS: Lymphocytes 2 % (20-55); Platelet Estimate Decreased; Segmented Neutrophils 94 % (50-85); Total Cells Counted 100
[2021-07-28 04:33] LABS: Hypochromia 1+; Microcytosis 1+
[2021-07-28 05:13] LABS: ABG Base Excess -5.1 MMOL/L (-2.5-2.5); ABG HCO3 20.2 MMOL/L (20-26); ABG Oxygen Saturation 98.6 % (95-100); ABG PCO2 41.8 MM HG (35-48); ABG PH 7.307 (7.35-7.45); ABG TCO2 19.6 MMOL/L (23-27); Glucose Heart Surgery 110 MG/DL (74-106); Hematocrit Heart Surgery 25.8 PERCENT (37-47); Hemoglobin Heart Surgery 8.3 G/DL (12.0-16.0); Potassium Heart/CVR 4.7 MMOL/L (3.5-5.1)
[2021-07-28] MEDS: CEFUROXIME INJ 1,500 MG in SODIUM CHLORIDE 0.9% 100 ML IV SCH ×2 (07:40→19:30)
[2021-07-28] MEDS: INSULIN REGULAR 100 UNIT/ML SUBCUT SCH ×5 (07:56→20:01)
[2021-07-28] MEDS: CHLORHEXIDINE 0.12% ORAL RINSE 60 ML BOTTLE SWISH/SPIT SCH ×2 (08:08→21:35)
[2021-07-28] MEDS: ALBUMIN 5% 12.5 GM/250 ML VIAL IV PRN (09:50)
[2021-07-28 10:18] LABS: Hepatitis B Core IgM Quant 0.18 Index; Hepatitis B Surface Ag Quant < 0.10 Index; Hepatitis B Surface Ag Result Non-Reactive (NonReactive); Hepatitis C Virus Ab Quant 0.03 Index; Hepatitis C Virus Ab Result Non-Reactive (NonReactive)
[2021-07-28] MEDS: INSULIN REGULAR DRIP 100 ML IV SCH (11:18)
[2021-07-28 11:54] LABS: CKMB % 12.8 %
[2021-07-28 11:58] LABS: High Sensitive Troponin I* 12058.5 ng/L (0-54)
[2021-07-28] MEDS ORDERED: HEPARIN 10,000 UNIT/10 ML VIAL IV SCH (12:30)
[2021-07-28 12:33] LABS: ABG Base Excess 0.1 MMOL/L (-2.5-2.5); ABG HCO3 24.5 MMOL/L (20-26); ABG Oxygen Saturation 99.1 % (95-100); ABG PCO2 38.5 MM HG (35-48); ABG PH 7.411 (7.35-7.45); ABG TCO2 22.4 MMOL/L (23-27); Glucose Heart Surgery 98 MG/DL (74-106); Hematocrit Heart Surgery 29.8 PERCENT (37-47); Hemoglobin Heart Surgery 9.6 G/DL (12.0-16.0); Potassium Heart/CVR 3.7 MMOL/L (3.5-5.1)
[2021-07-28 13:49] LABS: ABG Base Excess -0.1 MMOL/L (-2.5-2.5); ABG HCO3 24.4 MMOL/L (20-26); ABG Oxygen Saturation 98.2 % (95-100); ABG PCO2 37.8 MM HG (35-48); ABG PH 7.416 (7.35-7.45); ABG TCO2 22.4 MMOL/L (23-27); Glucose Heart Surgery 91 MG/DL (74-106); Hematocrit Heart Surgery 27.2 PERCENT (37-47); Hemoglobin Heart Surgery 8.8 G/DL (12.0-16.0); Potassium Heart/CVR 3.7 MMOL/L (3.5-5.1)
[2021-07-29] MEDS: INSULIN REGULAR 100 UNIT/ML SUBCUT SCH ×4 (00:02→11:42)
[2021-07-29 04:15] LABS: Basophils % 0.1 % (0.0-0.8); Eosinophils % 0.3 % (0.00-10.9); Hematocrit 25.9 VOL% (35.7-47.0); Hemoglobin 7.9 GM/DL (12.0-16.0); Immature Granulocytes % 0.4 %; Immature Granulocytes Absolute 0.05 #; Lymphocytes # 0.8 10*3/uL (1.4-4.0); Mean Corpuscular HGB Conc 30.5 GM/DL (32-36); Mean Corpuscular Volume 93.8 FL (87-102); Mean Platelet Volume 11.1 FL (9.6-12.0); Monocytes % 5.2 % (1.7-12.7); Platelet Count 101 T/CUMM (130-400); Red Blood Count 2.76 MC/CUMM (3.8-5.5); Red Cell Distribution Width 16.2 % (9.3-17.3); White Blood Count 12.9 T/CUMM (4-12)
[2021-07-29 04:40] LABS: Albumin 2.6 G/DL (3.4-5.0); Bilirubin,Direct 0.14 MG/DL (0.0-0.20); Bilirubin,Total 0.4 MG/DL (0.20-1.00); Calcium 7.5 MG/DL (8.5-10.1); Osmolality,Calculated 277.8 MOS/KG (273-304); Potassium 4.6 MMOL/L (3.5-5.1); Total Protein 6.4 G/DL (6.4-8.2)
[2021-07-29] MEDS: CHLORHEXIDINE 0.12% ORAL RINSE 60 ML BOTTLE SWISH/SPIT SCH ×2 (10:10→21:16)
[2021-07-29] MEDS ORDERED: ALUMINUM/MAGNES/SIMETH MAX STR 30 ML UDCUP PO PRN (14:26)
[2021-07-29] MEDS ORDERED: ACETAMINOPHEN 325 MG TABLET PO PRN ×2 (14:26)
[2021-07-29] MEDS ORDERED: MAGNESIUM SULF RIDER 4 GM/100 ML PREMIX IV PRN (14:26)
[2021-07-29] MEDS ORDERED: ONDANSETRON 4 MG/2 ML VIAL IV PRN (14:26)
[2021-07-29] MEDS ORDERED: MAGNESIUM HYDROXIDE SUSP 30 ML UDCUP PO PRN (14:26)
[2021-07-29] MEDS ORDERED: GLUCAGON 1 MG VIAL IM PRN ×2 (14:26)
[2021-07-29] MEDS ORDERED: POTASSIUM CHLORIDE 20 MEQ TABLET PO PRN (14:26)
[2021-07-29] MEDS ORDERED: SODIUM CHLOR 0.45% KCL 20 MEQ 20 MEQ/1,000 ML BAG IV SCH (14:26)
[2021-07-29] MEDS ORDERED: DEXTROSE 50% 25 GM/50 ML VIAL IV PRN (14:26)
[2021-07-29] MEDS ORDERED: MAGNESIUM SULF RIDER 2 GM/50 ML PREMIX IV PRN (14:26)
[2021-07-29] MEDS ORDERED: DEXTROSE 10% 250 ML BAG IV PRN (14:32)
[2021-07-29] MEDS: SEVELAMER CARBONATE 800 MG TABLET PO SCH ×2 (16:58)
[2021-07-30 04:14] LABS: Basophils % 0.1 % (0.0-0.8); Hematocrit 25.9 VOL% (35.7-47.0); Hemoglobin 7.9 GM/DL (12.0-16.0); Immature Granulocytes % 0.5 %; Immature Granulocytes Absolute 0.06 #; Lymphocytes # 0.5 10*3/uL (1.4-4.0); Lymphocytes % 4.2 % (21.3-54.2); Mean Corpuscular HGB Conc 30.5 GM/DL (32-36); Mean Corpuscular Volume 93.2 FL (87-102); Mean Platelet Volume 11.3 FL (9.6-12.0); Monocytes % 4.3 % (1.7-12.7); Neutrophils % 90.9 % (38.7-73.9); Platelet Count 118 T/CUMM (130-400); Red Blood Count 2.78 MC/CUMM (3.8-5.5); Red Cell Distribution Width 15.9 % (9.3-17.3); White Blood Count 12.2 T/CUMM (4-12)
[2021-07-30 04:39] LABS: Alanine Aminotransferase 14 U/L (13-56); Albumin 2.4 G/DL (3.4-5.0); Alkaline Phosphatase 124 U/L (45-117); Aspartate Amino Transferase 18 U/L (0-37); Bilirubin,Indirect 0.6 MG/DL (0.0-1.0); Blood Urea Nitrogen 43 MG/DL (7-18); Calcium 7.3 MG/DL (8.5-10.1); Carbon Dioxide 23 MMOL/L (21-32); Estimated Glom Filtration Rate 12 ML/MIN; Glucose 167 MG/DL (74-106); Osmolality,Calculated 278.5 MOS/KG (273-304); Potassium 5.6 MMOL/L (3.5-5.1); Sodium 132 MMOL/L (136-145); Total Protein 6.6 G/DL (6.4-8.2)
[2021-07-30 04:44] LABS: Lymphocytes 6 % (20-55); Segmented Neutrophils 90 % (50-85); Total Cells Counted 100
[2021-07-30 04:45] LABS: Hypochromia 1+; Microcytosis 1+; Ovalocytes Slight
[2021-07-30] MEDS ORDERED: FUROSEMIDE 40 MG/4 ML VIAL IV ONE (06:00)
[2021-07-30] MEDS: ASPIRIN EC 325 MG TABLET PO SCH (08:05)
[2021-07-30] MEDS: CHLORHEXIDINE 0.12% ORAL RINSE 60 ML BOTTLE SWISH/SPIT SCH ×2 (08:05→21:55)
[2021-07-30] MEDS: FERROUS SULFATE 325 MG TABLET PO SCH (08:05)
[2021-07-30] MEDS: DOCUSATE SODIUM 100 MG CAPSULE PO SCH (08:05)
[2021-07-30] MEDS: PANTOPRAZOLE 40 MG TABLET PO SCH (08:05)
[2021-07-30] MEDS: SEVELAMER CARBONATE 800 MG TABLET PO SCH ×3 (08:06→16:38)
[2021-07-30] MEDS ORDERED: MORPHINE 2 MG/1 ML SYRINGE ONE (08:22)
[2021-07-30] MEDS ORDERED: HEPARIN 10,000 UNIT/10 ML VIAL IV PRN (08:33)
[2021-07-30] MEDS ORDERED: MORPHINE 2 MG/1 ML SYRINGE IV ONE (08:50)
[2021-07-30] MEDS: INSULIN REGULAR 100 UNIT/ML SUBCUT SCH ×3 (12:34→21:54)
[2021-07-30] MEDS: cloNIDine 0.1 MG TABLET PO SCH ×2 (15:01→21:55)
[2021-07-30] MEDS: oxyCODONE/ACETAMINOPHEN 5-325 MG TABLET PO PRN (15:15)
[2021-07-31] MEDS: INSULIN REGULAR 100 UNIT/ML SUBCUT SCH ×6 (00:55→20:47)
[2021-07-31 07:54] LABS: Basophils % 0.3 % (0.0-0.8); Eosinophils # 0.2 10*3/uL (0.0-0.87); Hematocrit 26.3 VOL% (35.7-47.0); Hemoglobin 8.1 GM/DL (12.0-16.0); Immature Granulocytes % 0.5 %; Immature Granulocytes Absolute 0.06 #; Lymphocytes # 0.7 10*3/uL (1.4-4.0); Lymphocytes % 6.4 % (21.3-54.2); Mean Corpuscular HGB Conc 30.8 GM/DL (32-36); Mean Platelet Volume 10.7 FL (9.6-12.0); Monocytes % 7.8 % (1.7-12.7); Platelet Count 166 T/CUMM (130-400); Red Blood Count 2.86 MC/CUMM (3.8-5.5); Red Cell Distribution Width 15.9 % (9.3-17.3); White Blood Count 11.5 T/CUMM (4-12)
[2021-07-31 08:19] LABS: Alanine Aminotransferase 14 U/L (13-56); Albumin 2.3 G/DL (3.4-5.0); Alkaline Phosphatase 143 U/L (45-117); Aspartate Amino Transferase 14 U/L (0-37); Bilirubin,Indirect 0.2 MG/DL (0.0-1.0); Blood Urea Nitrogen 35 MG/DL (7-18); Calcium 7.7 MG/DL (8.5-10.1); Carbon Dioxide 26 MMOL/L (21-32); Estimated Glom Filtration Rate 15 ML/MIN; Glucose 142 MG/DL (74-106); Osmolality,Calculated 277.2 MOS/KG (273-304); Potassium 4.5 MMOL/L (3.5-5.1); Sodium 134 MMOL/L (136-145); Total Protein 6.5 G/DL (6.4-8.2)
[2021-07-31] MEDS: cloNIDine 0.1 MG TABLET PO SCH ×3 (09:22→20:47)
[2021-07-31] MEDS: ASPIRIN EC 325 MG TABLET PO SCH (09:22)
[2021-07-31] MEDS: FERROUS SULFATE 325 MG TABLET PO SCH (09:22)
[2021-07-31] MEDS: PANTOPRAZOLE 40 MG TABLET PO SCH (09:22)
[2021-07-31] MEDS: SEVELAMER CARBONATE 800 MG TABLET PO SCH ×3 (09:22→17:00)
[2021-07-31] MEDS: DOCUSATE SODIUM 100 MG CAPSULE PO SCH (09:22)
[2021-07-31] MEDS: CHLORHEXIDINE 0.12% ORAL RINSE 60 ML BOTTLE SWISH/SPIT SCH ×2 (09:26→20:50)
[2021-08-01] MEDS: INSULIN REGULAR 100 UNIT/ML SUBCUT SCH ×4 (08:13→20:37)
[2021-08-01] MEDS: PANTOPRAZOLE 40 MG TABLET PO SCH (08:41)
[2021-08-01] MEDS: FERROUS SULFATE 325 MG TABLET PO SCH (08:41)
[2021-08-01] MEDS: cloNIDine 0.1 MG TABLET PO SCH ×3 (08:41→20:36)
[2021-08-01] MEDS: ASPIRIN EC 325 MG TABLET PO SCH (08:41)
[2021-08-01] MEDS: SEVELAMER CARBONATE 800 MG TABLET PO SCH ×3 (08:41→16:22)
[2021-08-01] MEDS: DOCUSATE SODIUM 100 MG CAPSULE PO SCH (08:41)
[2021-08-01] MEDS: CHLORHEXIDINE 0.12% ORAL RINSE 60 ML BOTTLE SWISH/SPIT SCH ×2 (08:41→20:37)
[2021-08-02 04:36] LABS: Basophils % 0.2 % (0.0-0.8); Eosinophils # 0.4 10*3/uL (0.0-0.87); Eosinophils % 3.5 % (0.00-10.9); Immature Granulocytes % 0.3 %; Immature Granulocytes Absolute 0.03 #; Lymphocytes # 0.7 10*3/uL (1.4-4.0); Mean Corpuscular Volume 92.3 FL (87-102); Mean Platelet Volume 10.3 FL (9.6-12.0); Monocytes % 8.5 % (1.7-12.7); Neutrophils % 80.5 % (38.7-73.9); Platelet Count 262 T/CUMM (130-400); Red Blood Count 3.25 MC/CUMM (3.8-5.5); White Blood Count 10.1 T/CUMM (4-12)
[2021-08-02 05:03] LABS: Alanine Aminotransferase 10 U/L (13-56); Albumin 2.2 G/DL (3.4-5.0); Alkaline Phosphatase 160 U/L (45-117); Aspartate Amino Transferase 10 U/L (0-37); Bilirubin,Indirect 0.3 MG/DL (0.0-1.0); Blood Urea Nitrogen 73 MG/DL (7-18); Calcium 8.1 MG/DL (8.5-10.1); Carbon Dioxide 26 MMOL/L (21-32); Estimated Glom Filtration Rate 9 ML/MIN; Glucose 106 MG/DL (74-106); Osmolality,Calculated 285.5 MOS/KG (273-304); Potassium 5.6 MMOL/L (3.5-5.1); Sodium 132 MMOL/L (136-145); Total Protein 6.6 G/DL (6.4-8.2)
[2021-08-02] MEDS: INSULIN REGULAR 100 UNIT/ML SUBCUT SCH ×4 (08:57→22:31)
[2021-08-02] MEDS: SEVELAMER CARBONATE 800 MG TABLET PO SCH ×3 (08:57→16:24)
[2021-08-02] MEDS: PANTOPRAZOLE 40 MG TABLET PO SCH (12:43)
[2021-08-02] MEDS: FERROUS SULFATE 325 MG TABLET PO SCH (12:43)
[2021-08-02] MEDS: ASPIRIN EC 325 MG TABLET PO SCH (12:43)
[2021-08-02] MEDS: CHLORHEXIDINE 0.12% ORAL RINSE 60 ML BOTTLE SWISH/SPIT SCH ×2 (12:44→22:32)
[2021-08-02] MEDS: DOCUSATE SODIUM 100 MG CAPSULE PO SCH (12:44)
[2021-08-02] MEDS: cloNIDine 0.1 MG TABLET PO SCH ×3 (12:44→22:31)
[2021-08-02] MEDS: ZALEPLON 5 MG CAPSULE PO PRN (23:06)
[2021-08-02] MEDS: oxyCODONE/ACETAMINOPHEN 5-325 MG TABLET PO PRN (23:07)
[2021-08-03] MEDS: oxyCODONE/ACETAMINOPHEN 5-325 MG TABLET PO PRN ×4 (03:08→22:01)
[2021-08-03 05:11] LABS: Basophils % 0.2 % (0.0-0.8); Eosinophils # 0.3 10*3/uL (0.0-0.87); Eosinophils % 2.4 % (0.00-10.9); Hematocrit 24.8 VOL% (35.7-47.0); Hemoglobin 7.6 GM/DL (12.0-16.0); Immature Granulocytes % 0.6 %; Immature Granulocytes Absolute 0.07 #; Lymphocytes # 0.7 10*3/uL (1.4-4.0); Mean Corpuscular HGB Conc 30.6 GM/DL (32-36); Mean Corpuscular Volume 90.8 FL (87-102); Mean Platelet Volume 10.5 FL (9.6-12.0); Monocytes % 11.9 % (1.7-12.7); Neutrophils % 78.9 % (38.7-73.9); Platelet Count 272 T/CUMM (130-400); Red Blood Count 2.73 MC/CUMM (3.8-5.5); White Blood Count 11.8 T/CUMM (4-12)
[2021-08-03 05:41] LABS: Alanine Aminotransferase 13 U/L (13-56); Albumin 1.9 G/DL (3.4-5.0); Alkaline Phosphatase 185 U/L (45-117); Aspartate Amino Transferase 20 U/L (0-37); Bilirubin,Indirect 0.3 MG/DL (0.0-1.0); Blood Urea Nitrogen 48 MG/DL (7-18); Calcium 7.9 MG/DL (8.5-10.1); Carbon Dioxide 27 MMOL/L (21-32); Estimated Glom Filtration Rate 14 ML/MIN; Glucose 108 MG/DL (74-106); Osmolality,Calculated 279.4 MOS/KG (273-304); Potassium 4.6 MMOL/L (3.5-5.1); Sodium 133 MMOL/L (136-145); Total Protein 5.9 G/DL (6.4-8.2)
[2021-08-03] MEDS: INSULIN REGULAR 100 UNIT/ML SUBCUT SCH ×4 (08:02→22:24)
[2021-08-03] MEDS ORDERED: LACTULOSE 20 GM/30 ML UDCUP PO ONE (08:14)
[2021-08-03] MEDS ORDERED: LACTULOSE 20 GM/30 ML UDCUP PO PRN (08:14)
[2021-08-03] MEDS: SEVELAMER CARBONATE 800 MG TABLET PO SCH ×3 (09:56→17:11)
[2021-08-03] MEDS: DOCUSATE SODIUM 100 MG CAPSULE PO SCH (09:56)
[2021-08-03] MEDS: cloNIDine 0.1 MG TABLET PO SCH ×3 (09:56→22:02)
[2021-08-03] MEDS: FERROUS SULFATE 325 MG TABLET PO SCH (09:56)
[2021-08-03] MEDS: ASPIRIN EC 325 MG TABLET PO SCH (09:56)
[2021-08-03] MEDS: POLYETHYLENE GLYCOL POWDER 17 GM PACK PO SCH (09:56)
[2021-08-03] MEDS: PANTOPRAZOLE 40 MG TABLET PO SCH (10:00)
[2021-08-03] MEDS: CHLORHEXIDINE 0.12% ORAL RINSE 60 ML BOTTLE SWISH/SPIT SCH ×2 (10:23→22:02)
[2021-08-03] MEDS ORDERED: ATORVASTATIN 40 MG TABLET PO SCH (21:00)
[2021-08-03] MEDS: ZALEPLON 5 MG CAPSULE PO PRN (22:02)
[2021-08-04 05:12] LABS: Basophils % 0.3 % (0.0-0.8); Eosinophils # 0.4 10*3/uL (0.0-0.87); Hematocrit 24.7 VOL% (35.7-47.0); Hemoglobin 7.6 GM/DL (12.0-16.0); Immature Granulocytes % 0.5 %; Immature Granulocytes Absolute 0.06 #; Lymphocytes # 0.7 10*3/uL (1.4-4.0); Lymphocytes % 5.7 % (21.3-54.2); Mean Corpuscular HGB Conc 30.8 GM/DL (32-36); Mean Corpuscular Volume 91.1 FL (87-102); Mean Platelet Volume 10.2 FL (9.6-12.0); Monocytes % 9.7 % (1.7-12.7); Neutrophils % 80.8 % (38.7-73.9); Platelet Count 330 T/CUMM (130-400); Red Blood Count 2.71 MC/CUMM (3.8-5.5); Red Cell Distribution Width 16.5 % (9.3-17.3)
[2021-08-04 05:28] LABS: Calcium 8.3 MG/DL (8.5-10.1); Osmolality,Calculated 281.5 MOS/KG (273-304); Potassium 5.2 MMOL/L (3.5-5.1)
[2021-08-04] MEDS: INSULIN REGULAR 100 UNIT/ML SUBCUT SCH ×2 (07:56→12:52)
[2021-08-04] MEDS: cloNIDine 0.1 MG TABLET PO SCH (10:32)
[2021-08-04] MEDS: SEVELAMER CARBONATE 800 MG TABLET PO SCH ×2 (10:32→13:06)
[2021-08-04] MEDS: CHLORHEXIDINE 0.12% ORAL RINSE 60 ML BOTTLE SWISH/SPIT SCH (10:33)
[2021-08-04] MEDS: POLYETHYLENE GLYCOL POWDER 17 GM PACK PO SCH (10:37)
[2021-08-04] MEDS: DOCUSATE SODIUM 100 MG CAPSULE PO SCH (10:37)
[2021-08-04] MEDS: FERROUS SULFATE 325 MG TABLET PO SCH (10:37)
[2021-08-04] MEDS: PANTOPRAZOLE 40 MG TABLET PO SCH (10:37)
[2021-08-04] MEDS: ASPIRIN EC 325 MG TABLET PO SCH (10:37)
[2021-08-04] MEDS: oxyCODONE/ACETAMINOPHEN 5-325 MG TABLET PO PRN (14:01)
[2021-08-04 16:16] VITALS: BP 138/63
== END 2021-08-04 15:35 | disposition home health service (06) | DRG 235 ==
LOC: N.ICU 07-25 11:10 → N.CVR 07-27 07:11 → N.ICU 07-28 14:39 → N.TELES 07-31 19:03

== ENCOUNTER 2021-09-01 15:55 | Inpatient (IN) ==
[2021-09-01] MEDS ORDERED: SODIUM CHLORIDE 0.9% 1,000 ML IV PRN (19:31)
[2021-09-01] MEDS ORDERED: ONDANSETRON 4 MG/2 ML VIAL IV PRN (19:39)
[2021-09-01] MEDS ORDERED: GLUCAGON 1 MG VIAL IM PRN (19:39)
[2021-09-01] MEDS ORDERED: ACETAMINOPHEN 325 MG TABLET PO PRN (19:39)
[2021-09-01] MEDS ORDERED: hydrALAZINE 20 MG/1 ML VIAL IV PRN (19:39)
[2021-09-01] MEDS ORDERED: DEXTROSE 10% 250 ML BAG IV PRN (19:51)
[2021-09-01 20:01] LABS: Basophils % 0.4 % (0.0-0.8); Eosinophils % 0.4 % (0.00-10.9); Immature Granulocytes % 0.5 %; Immature Granulocytes Absolute 0.04 #; Lymphocytes # 1.3 10*3/uL (1.4-4.0); Lymphocytes % 16.3 % (21.3-54.2); Mean Corpuscular HGB Conc 28.7 GM/DL (32-36); Mean Corpuscular Volume 96.6 FL (87-102); Mean Platelet Volume 9.3 FL (9.6-12.0); Monocytes # 0.7 10*3/uL (0.11-0.8); Monocytes % 8.2 % (1.7-12.7); NRBC # 0.02 10*3/uL; Neutrophils % 74.2 % (38.7-73.9); Platelet Count 346 T/CUMM (130-400); Red Blood Count 1.77 MC/CUMM (3.8-5.5); Red Cell Distribution Width 21.6 % (9.3-17.3)
[2021-09-01] MEDS: INSULIN LISPRO 100 UNIT/ML SUBCUT SCH (20:03)
[2021-09-01 20:05] LABS: Hematocrit 17.1 VOL% (35.7-47.0); Hemoglobin 4.9 GM/DL (12.0-16.0)
[2021-09-01 20:16] LABS: Calcium 8.1 MG/DL (8.5-10.1); Osmolality,Calculated 288.1 MOS/KG (273-304); Potassium 4.5 MMOL/L (3.5-5.1)
[2021-09-01 20:26] LABS: Lymphocytes 12 % (20-55); Nucleated Red Blood Cells 2 (0-5); Platelet Estimate Adequate; Total Cells Counted 100
[2021-09-01 20:27] LABS: Anisocytosis 1+; Hypochromia 1+; Macrocytosis 1+; Microcytosis 1+
[2021-09-01 20:28] LABS: Polychromasia 1+
[2021-09-01 20:38] LABS: Arterial Base Excess iSTAT 5 MMOL/L (-2.5-2.5); Arterial Bicarbonate iSTAT 29.3 MMOL/L (20-26); Arterial O2 Saturation iSTAT 98 % (95-100); Arterial PCO2 iSTAT 40 MM HG (35-48); Arterial PO2 iSTAT 97 MM HG (80-95); Arterial Total CO2 iSTAT 31 MMO/L (23-27)
[2021-09-01 20:44] LABS: Albumin 2.5 G/DL (3.4-5.0); Bilirubin,Direct 0.19 MG/DL (0.0-0.20); Bilirubin,Indirect 0.2 MG/DL (0.0-1.0); Bilirubin,Total 0.4 MG/DL (0.20-1.00); Total Protein 7.3 G/DL (6.4-8.2)
[2021-09-01] MEDS ORDERED: METOPROLOL TARTRATE 5 MG/5 ML VIAL IV ONE (22:03)
[2021-09-02 01:34] LABS: Hematocrit 19.9 VOL% (35.7-47.0)
[2021-09-02 01:43] LABS: Hemoglobin 6.1 GM/DL (12.0-16.0)
[2021-09-02 02:43] LABS: Basophils % 0.3 % (0.0-0.8); Eosinophils % 0.5 % (0.00-10.9); Hematocrit 20.6 VOL% (35.7-47.0); Immature Granulocytes % 0.5 %; Immature Granulocytes Absolute 0.04 #; Lymphocytes # 1.1 10*3/uL (1.4-4.0); Lymphocytes % 13.5 % (21.3-54.2); Mean Corpuscular HGB Conc 30.1 GM/DL (32-36); Mean Platelet Volume 9.6 FL (9.6-12.0); Monocytes # 0.6 10*3/uL (0.11-0.8); NRBC # 0.03 10*3/uL; Neutrophils % 77.2 % (38.7-73.9); Platelet Count 332 T/CUMM (130-400); Red Blood Count 2.24 MC/CUMM (3.8-5.5); Red Cell Distribution Width 20.7 % (9.3-17.3); White Blood Count 7.8 T/CUMM (4-12)
[2021-09-02 02:56] LABS: Hemoglobin 6.2 GM/DL (12.0-16.0)
[2021-09-02 03:00] LABS: Potassium 4.7 MMOL/L (3.5-5.1)
[2021-09-02] MEDS ORDERED: SODIUM CHLORIDE 0.9% 1,000 ML IV PRN ×3 (08:20→12:40)
[2021-09-02] MEDS ORDERED: PANTOPRAZOLE 40 MG VIAL IV SCH (09:00)
[2021-09-02 09:17] LABS: % Iron Saturation 11.9 % (18-50); Ferritin 848.2 ng/mL (8-252)
[2021-09-02] MEDS ORDERED: NITROGLYCERIN SL 0.4 MG TABLET SL PRN (10:40)
[2021-09-02] MEDS ORDERED: HEPARIN 10,000 UNIT/10 ML VIAL IV ONE (11:00)
[2021-09-02] MEDS: INSULIN LISPRO 100 UNIT/ML SUBCUT SCH ×4 (11:15→21:46)
[2021-09-02] MEDS ORDERED: GLUCAGON 1 MG VIAL IM PRN (11:35)
[2021-09-02] MEDS ORDERED: DEXTROSE 10% 250 ML BAG IV PRN (11:37)
[2021-09-02] MEDS: carvediloL 3.125 MG TABLET PO SCH ×2 (19:47→20:40)
[2021-09-02] MEDS: ATORVASTATIN 40 MG TABLET PO SCH (20:40)
[2021-09-02] MEDS: PANTOPRAZOLE 40 MG VIAL IV SCH (20:41)
[2021-09-02 23:28] LABS: Hematocrit 22.9 VOL% (35.7-47.0); Hemoglobin 7.1 GM/DL (12.0-16.0)
[2021-09-03 06:10] LABS: Basophils % 0.2 % (0.0-0.8); Eosinophils # 0.1 10*3/uL (0.0-0.87); Eosinophils % 1.6 % (0.00-10.9); Hematocrit 23.8 VOL% (35.7-47.0); Hemoglobin 7.3 GM/DL (12.0-16.0); Immature Granulocytes % 0.5 %; Immature Granulocytes Absolute 0.03 #; Lymphocytes # 0.6 10*3/uL (1.4-4.0); Lymphocytes % 10.1 % (21.3-54.2); Mean Corpuscular HGB Conc 30.7 GM/DL (32-36); Mean Corpuscular Volume 93.7 FL (87-102); Mean Platelet Volume 10.5 FL (9.6-12.0); Monocytes # 0.6 10*3/uL (0.11-0.8); Monocytes % 10.1 % (1.7-12.7); NRBC # 0.02 10*3/uL; Neutrophils % 77.5 % (38.7-73.9); Platelet Count 301 T/CUMM (130-400); Red Blood Count 2.54 MC/CUMM (3.8-5.5); Red Cell Distribution Width 20.6 % (9.3-17.3); White Blood Count 5.6 T/CUMM (4-12)
[2021-09-03 06:35] LABS: Calcium 7.9 MG/DL (8.5-10.1); Osmolality,Calculated 277.2 MOS/KG (273-304)
[2021-09-03] MEDS: SODIUM CHLORIDE 0.9% 500 ML IV SCH (08:19)
[2021-09-03] MEDS ORDERED: propofoL 200 MG/20 ML VIAL IV ONE (08:25)
[2021-09-03] MEDS ORDERED: ETOMIDATE 20 MG/10 ML VIAL IV ONE (08:25)
[2021-09-03] MEDS ORDERED: LIDOCAINE 2% 5 ML VIAL ONE (08:25)
[2021-09-03] MEDS: INSULIN LISPRO 100 UNIT/ML SUBCUT SCH ×4 (09:27→20:53)
[2021-09-03] MEDS: carvediloL 6.25 MG TABLET PO SCH ×2 (09:52→20:44)
[2021-09-03] MEDS: PANTOPRAZOLE 40 MG VIAL IV SCH ×2 (09:52→20:43)
[2021-09-03] MEDS: ATORVASTATIN 40 MG TABLET PO SCH (20:44)
[2021-09-04 05:37] LABS: Basophils % 0.4 % (0.0-0.8); Eosinophils # 0.1 10*3/uL (0.0-0.87); Eosinophils % 2.5 % (0.00-10.9); Hematocrit 28.4 VOL% (35.7-47.0); Hemoglobin 8.7 GM/DL (12.0-16.0); Immature Granulocytes % 0.5 %; Immature Granulocytes Absolute 0.03 #; Lymphocytes # 0.8 10*3/uL (1.4-4.0); Lymphocytes % 14.5 % (21.3-54.2); Mean Corpuscular HGB Conc 30.6 GM/DL (32-36); Mean Corpuscular Volume 93.4 FL (87-102); Mean Platelet Volume 9.8 FL (9.6-12.0); Monocytes # 0.6 10*3/uL (0.11-0.8); Monocytes % 10.2 % (1.7-12.7); NRBC # 0.03 10*3/uL; Neutrophils % 71.9 % (38.7-73.9); Platelet Count 255 T/CUMM (130-400); Red Blood Count 3.04 MC/CUMM (3.8-5.5); Red Cell Distribution Width 19.5 % (9.3-17.3); White Blood Count 5.7 T/CUMM (4-12)
[2021-09-04 06:07] LABS: Calcium 7.9 MG/DL (8.5-10.1); Osmolality,Calculated 272.1 MOS/KG (273-304); Potassium 3.9 MMOL/L (3.5-5.1)
[2021-09-04] MEDS: SODIUM CHLORIDE 0.9% 500 ML IV SCH (07:30)
[2021-09-04] MEDS: carvediloL 6.25 MG TABLET PO SCH (09:48)
[2021-09-04] MEDS: PANTOPRAZOLE 40 MG VIAL IV SCH (09:49)
[2021-09-04] MEDS: INSULIN LISPRO 100 UNIT/ML SUBCUT SCH ×3 (10:02→16:11)
[2021-09-04] MEDS: SODIUM CHLORIDE 0.9% 1,000 ML IV SCH (10:02)
[2021-09-04 17:08] VITALS: BP 139/80
== END 2021-09-04 21:20 | disposition home health service (06) | DRG 377 ==
LOC: N.TELEN → SUATTDRO 19:39
PROVIDERS: ADMIT Internal Medicine; ATTEND Internal Medicine